=== PATIENT | female | born 1990 | race African-American/Black ===

== ENCOUNTER 2019-05-23 01:34 | Inpatient (IN) | payer MEDICAID ==
[~2019-05-23] VITALS: Ht 167.6 cm; Wt 84.1 kg
[2019-05-23 01:38] VITALS: BP 139/92
[2019-05-23] MEDS ORDERED: OXYTOCIN 30U/ 0.9% NaCL 500ML 500 ML ONE ×2 (01:48→04:01)
[2019-05-23] MEDS ORDERED: FENTANYL PF 100 MCG/2ML ONE (02:00)
[2019-05-23] MEDS ORDERED: FENTANYL PF 100 MCG/2ML IV PRN ×2 (02:00→02:15)
[2019-05-23] MEDS ORDERED: OXYTOCIN 30U/ 0.9% NaCL 500ML 500 ML IV ONE (02:01)
[2019-05-23] MEDS: LACTATED RINGERS 1,000 ML IV SCH ×3 (02:15→18:01)
[2019-05-23] MEDS ORDERED: SIMETHICONE 80 MG CHEW TAB PO PRN (02:30)
[2019-05-23] MEDS ORDERED: ONDANSETRON 2MG/ML, 2ML IVPush PRN (02:30)
[2019-05-23] MEDS ORDERED: ONDANSETRON 2MG/ML, 2ML IV PRN (02:30)
[2019-05-23] MEDS ORDERED: OXYTOCIN 10 UNITS/ML, 1ML IM PRN (02:30)
[2019-05-23] MEDS ORDERED: MISOPROSTOL 200 MCG TABLET PR PRN (02:30)
[2019-05-23] MEDS ORDERED: OXYcodone/APAP 5/325MG TABLET PO PRN (02:30)
[2019-05-23] MEDS ORDERED: ACETAMINOPHEN 325 MG TABLET PO PRN ×2 (02:30)
[2019-05-23] MEDS ORDERED: IBUPROFEN 600 MG TABLET ONE (02:59)
[2019-05-23] MEDS: IBUPROFEN 600 MG TABLET PO PRN ×3 (03:00→16:38)
[2019-05-23 03:18] LABS: BASOPHILS # (AUTO) 0.04 x10^3/uL (0-0.1); BASOPHILS % (AUTO) 0 % (0-1); EOSINOPHILS # (AUTO) 0.14 x10^3/uL (0-0.4); EOSINOPHILS % (AUTO) 1 % (1-7); LYMPHOCYTES # (AUTO) 1.36 x10^3/uL (1-3.4); LYMPHOCYTES % (AUTO) 9 % (22-44); MD NO; MEAN CORPUSCULAR HEMOGLOBIN 31.9 pg (27.0-34.8); MEAN CORPUSCULAR HGB CONC 33.5 g/dL (32.4-35.8); MEAN CORPUSCULAR VOLUME 95.1 fL (80-100); MEAN PLATELET VOLUME 8.4 fL (7.4-10.4); MONOCYTES # (AUTO) 0.98 x10^3/uL (0.2-0.8); MONOCYTES % (AUTO) 6 % (2-9); NEUTROPHILS # (AUTO) 13.43 x10^3/uL (1.8-6.8); NEUTROPHILS % (AUTO) 84 % (42-75); PLATELET COUNT 282 x10^3/uL (130-400); RED BLOOD COUNT 3.88 x10^6/uL (3.82-5.3); RED CELL DISTRIBUTION WIDTH 13.8 % (9.6-15.2)
[2019-05-23 03:22] LABS: ALANINE AMINOTRANSFERASE 28 U/L (12-78); ALBUMIN 2.5 g/dL (3.4-5.0); ANION GAP 6 mmol/L (5-15); CALCIUM 8.9 mg/dL (8.5-10.1); CHLORIDE 108 mmol/L (98-107); CREATININE 0.67 mg/dL (0.55-1.02)
[2019-05-23 03:25] LABS: ALKALINE PHOSPHATASE 318 U/L (45-117); BILIRUBIN,TOTAL 0.5 mg/dL (0.2-1.0); TOTAL PROTEIN 6.8 g/dL (6.4-8.2)
[2019-05-23] MEDS: OXYTOCIN 30U/ 0.9% NaCL 500ML 500 ML IV SCH ×2 (04:02→12:30)
[2019-05-23 04:13] LABS: AMPHETAMINE SCREEN, URINE Positive (Negative); BARBITURATE SCREEN, URINE Negative (Negative); BENZODIAZEPINE SCREEN, URINE Negative (Negative); CANNABINOID SCREEN, URINE Positive (Negative); COCAINE SCREEN, URINE Negative (Negative); METHADONE SCREEN, URINE Negative (Negative); OPIATE SCREEN, URINE Negative (Negative)
[2019-05-23] MEDS: OXYcodone/APAP 5/325MG TABLET PO PRN ×4 (04:25→20:47)
[2019-05-23 04:43] VITALS: BP 136/90
[2019-05-23 07:50] VITALS: BP 140/89
[2019-05-23] MEDS: DOCUSATE 100 MG CAPSULE PO PRN (07:57)
[2019-05-23] MEDS: PRENATAL VIT/IRON/FA 1 EACH TABLET PO SCH (07:57)
[2019-05-23 08:50] LABS: MEAN CORPUSCULAR HEMOGLOBIN 31.3 pg (27.0-34.8); MEAN CORPUSCULAR VOLUME 94.9 fL (80-100); MEAN PLATELET VOLUME 7.7 fL (7.4-10.4); PLATELET COUNT 291 x10^3/uL (130-400); RED BLOOD COUNT 3.79 x10^6/uL (3.82-5.3); RED CELL DISTRIBUTION WIDTH 13.6 % (9.6-15.2)
[2019-05-23 09:28] LABS: BASOPHILS # (AUTO) 0.04 x10^3/uL (0-0.1); BASOPHILS % (AUTO) 0 % (0-1); EOSINOPHILS # (AUTO) 0.04 x10^3/uL (0-0.4); EOSINOPHILS % (AUTO) 0 % (1-7); LYMPHOCYTES # (AUTO) 2.35 x10^3/uL (1-3.4); LYMPHOCYTES % (AUTO) 10 % (22-44); MD SCAN; MONOCYTES # (AUTO) 1.98 x10^3/uL (0.2-0.8); MONOCYTES % (AUTO) 9 % (2-9); NEUTROPHILS # (AUTO) 18.83 x10^3/uL (1.8-6.8); NEUTROPHILS % (AUTO) 81 % (42-75)
[2019-05-23 12:43] VITALS: BP 133/92
[2019-05-23 16:13] VITALS: BP 124/86
[2019-05-23 20:45] VITALS: BP 134/87
[2019-05-24 00:42] VITALS: BP 149/92
[2019-05-24] MEDS: IBUPROFEN 600 MG TABLET PO PRN ×3 (06:02→22:22)
[2019-05-24 08:00] VITALS: BP 120/75
[2019-05-24] MEDS ORDERED: DIPH,PERTUSS(ACELL),TET VAC/PF NC IM-VACC ONE (11:00)
[2019-05-24 14:00] VITALS: BP 117/83
[2019-05-24] MEDS: OXYcodone/APAP 5/325MG TABLET PO PRN ×2 (14:58→22:23)
[2019-05-24 19:50] VITALS: BP 129/82
[2019-05-24] MEDS: DOCUSATE 100 MG CAPSULE PO PRN (22:22)
[2019-05-25 07:54] VITALS: BP 131/94
[2019-05-25] MEDS: PRENATAL VIT/IRON/FA 1 EACH TABLET PO SCH ×2 (07:58→09:00)
[2019-05-25] MEDS: DOCUSATE 100 MG CAPSULE PO PRN (07:59)
[2019-05-25] MEDS: IBUPROFEN 600 MG TABLET PO PRN (07:59)
[2019-05-25] MEDS ORDERED: IBUP-1222 PO (09:27)
[2019-05-25 13:50] VITALS: BP 128/84
== END 2019-05-25 14:00 | disposition home or self-care (01) | DRG 807 ==
LOC: LDIP 01:34 → UNDOADMIN 01:34 → NICU 01:50 → UNDOADMIN 01:57 → LDIP 01:57 → 2NW 03:57
PROVIDERS: ADMIT Obstetrics & Gynecology; ATTEND Obstetrics & Gynecology
PROC: 10E0XZZ Delivery of Products of Conception, External Approach (ICD-10-PCS; principal; 2019-05-23)
PROC: 3E0234Z Introduction of Serum, Toxoid and Vaccine into Muscle, Percutaneous Approach (ICD-10-PCS; 2019-05-24)
DX: O62.3 Precipitate labor (principal); Z37.0 Single live birth; J45.909 Unspecified asthma, uncomplicated; O99.513 Diseases of the respiratory system complicating pregnancy, third trimester; Z3A.34 34 weeks gestation of pregnancy; O71.89 Other specified obstetric trauma; Z23 Encounter for immunization
CPT/HCPCS: 36415; 59414; 80053; 80307; 84550; 85025; 86592; 86762; 86850; 86900; 90715; G0378; J3010; J2590; J7120

== ENCOUNTER 2020-12-20 19:22 | Emergency (ER) | payer MEDICAID, OTHER ==
[~2020-12-20] VITALS: Ht 167.6 cm; Wt 67.9 kg
[~2020-12-20 19:22] MED LIST: IBUP-1222 PO
[2020-12-20 19:30] VITALS: BP 135/99
[2020-12-20] MEDS ORDERED: SODIUM CHLORIDE FLUSH 10ML SYR IVF ONE (20:00)
[2020-12-20] MEDS ORDERED: SODIUM CHLORIDE 0.9% 1,000ML IVBOLUS ONE (20:00)
--- NOTE | 2020-12-20 20:23 | NUR ---
LAB CALLED NA X 1
--- NOTE | 2020-12-20 21:51 | NUR ---
PT CALLED FOR ROOM NA X 2
--- NOTE | 2020-12-20 22:43 | NUR ---
NA X 3
== END 2020-12-20 22:45 | disposition left against medical advice (07) ==
LOC: ED 19:32
DX: R22.0 Localized swelling, mass and lump, head (principal)
CPT/HCPCS: 99281

== ENCOUNTER 2020-12-21 00:25 | Emergency (ER) | payer OTHER ==
[~2020-12-21] VITALS: Ht 170.2 cm; Wt 78.9 kg
[2020-12-21] MEDS ORDERED: SODIUM CHLORIDE FLUSH 10ML SYR IVF ONE (01:00)
[2020-12-21] MEDS ORDERED: SODIUM CHLORIDE 0.9% 1,000ML IVBOLUS ONE (01:00)
[2020-12-21 01:01] LABS: BASOPHILS % (AUTO) 0 % (0-1); EOSINOPHILS % (AUTO) 0 % (1-7); LYMPHOCYTES % (AUTO) 20 % (22-44); MEAN CORPUSCULAR HEMOGLOBIN 31.1 pg (27.0-34.8); MEAN CORPUSCULAR HGB CONC 33.3 g/dL (32.4-35.8); MEAN PLATELET VOLUME 8.5 fL (7.4-10.4); MONOCYTES % (AUTO) 9 % (2-9); NEUTROPHILS % (AUTO) 71 % (42-75); PLATELET COUNT 312 x10^3/uL (130-400); RED BLOOD COUNT 4.79 x10^6/uL (3.82-5.3); RED CELL DISTRIBUTION WIDTH 14.1 % (9.6-15.2)
[2020-12-21 01:09] LABS: ALANINE AMINOTRANSFERASE 30 U/L (12-78); ANION GAP 7 mmol/L (5-15); CALCIUM 9.5 mg/dL (8.5-10.1); CHLORIDE 103 mmol/L (98-107)
[2020-12-21 01:11] LABS: ALKALINE PHOSPHATASE 79 U/L (45-117); BILIRUBIN,TOTAL 1.6 mg/dL (0.2-1.0); TOTAL PROTEIN 8.9 g/dL (6.4-8.2)
--- NOTE | 2020-12-21 01:38 | NUR ---
PT CALLED FOR ROOM X 1. NA
[2020-12-21] MEDS ORDERED: OMNIPAQUE 350 MG/ML, 100ML BOTTLE ONE (02:00)
--- NOTE | 2020-12-21 02:11 | NUR ---
pt to ct at this time
[2020-12-21 03:24] VITALS: BP 154/107
== END 2020-12-21 03:31 | disposition home or self-care (01) ==
LOC: ED 01:49
DX: K02.9 Dental caries, unspecified (principal); K04.7 Periapical abscess without sinus; R93.0 Abnormal findings on diagnostic imaging of skull and head, not elsewhere classified; F17.210 Nicotine dependence, cigarettes, uncomplicated
CPT/HCPCS: 36415; 70487; 80053; 85025; 96360; 99284; 99406; J7030; Q9967